=== PATIENT | female | born 1980 | race Caucasian/White ===

== ENCOUNTER 2016-07-26 05:34 | Day surgery (SDC) | payer OTHER ==
[2016-07-23 14:05] VITALS: BMI 31.8
[2016-07-26] MEDS ORDERED: BUPIVACAINE HCL/PF 0.5% (5MG/ML) 10 ML VIAL ONE (07:45)
[2016-07-26] MEDS ORDERED: LIDOCAINE HCL/PF 2% SDV 5ML VIAL ONE (07:45)
[2016-07-26] MEDS ORDERED: ROCURONIUM BROMIDE 50 MG/5 ML VIAL ONE (07:46)
[2016-07-26] MEDS ORDERED: MIDAZOLAM HCL 2 MG/2 ML SINGLE DOSE VIAL ONE (07:46)
[2016-07-26] MEDS ORDERED: PROPOFOL 20 ML ONE (07:46)
[2016-07-26] MEDS ORDERED: DESFLURANE GAS 240 ML BOTTLE IH ONE (07:49)
[2016-07-26] MEDS ORDERED: IBUPROFEN 800 MG/8 ML IJ IVPB ONE (07:51)
[2016-07-26] MEDS ORDERED: IBUPROFEN 800 MG/8 ML IJ IVPB PRN (08:14)
[2016-07-26] MEDS ORDERED: ACETAMINOPHEN 325 MG TABLET (FP) PO PRN (08:14)
--- NOTE | 2016-07-26 08:14 | HP ---
History & Physical Update - History History: No Change - Physical Physical: No Change - Assessment Assessment: No Change - Plan Plan: No Change (dermoid cyst - for robotic assisted laparscopic removal)
[2016-07-26] MEDS ORDERED: LACTATED RINGERS SOLUTION 1,000 ML IV SCH (08:15)
[2016-07-26] MEDS ORDERED: ONDANSETRON 4 MG/2 ML VIAL IVPUSH PRN (09:02)
[2016-07-26] MEDS ORDERED: oxyCODONE HCL 5 MG TABLET PO PRN (09:02)
[2016-07-26] MEDS ORDERED: NEOSTIGMINE METHYLSULFATE 0.5 MG/ML - 10 ML MDV ONE (09:22)
[2016-07-26] MEDS ORDERED: GLYCOPYRROLATE 0.2 MG/1 ML VIAL ONE (09:22)
[2016-07-26] MEDS ORDERED: BUPIVACAINE HCL/PF 0.5% (5MG/ML) 10 ML VIAL IJ ONE (09:40)
--- NOTE | 2016-07-26 09:55 | OP ---
Operative Note - Note: Operative Date: 07/26/16 Pre-Operative Diagnosis: right ovarian dermoid cyst Operation: robotic laparoscopic right ovarian cystectomy Findings: large 4-5cm right dermoid cyst Post-Operative Diagnosis: Same as Pre-op Surgeon: Janna Diaz Animal Ecologist: Augustina Resendiz Anesthesiologist/QA ENGINEER: Mariana Sim Anesthesia: General Specimens Removed: right ovarian dermoid cyst Estimated Blood Loss (mls): 25 Fluid Volume Replaced (mls): 700 Operative Report Dictated: Yes
[2016-07-26 11:21] VITALS: TEMP 97.7
[2016-07-26 13:30] VITALS: BP 100/56; PULSE 80
--- NOTE | 2016-07-26 21:20 | OP ---
DATE OF OPERATION: 07/26/2016 PREOPERATIVE DIAGNOSIS: Right ovarian dermoid cyst. POSTOPERATIVE DIAGNOSIS: Right ovarian dermoid cyst. PROCEDURE: Laparoscopic robotic-assisted right ovarian cystectomy. SURGEON: Janna Diaz MD ELECTRIC MOTOR ASSEMBLER AND TESTER: Augustina Resendiz MD ANESTHESIA: General, by Dr. Mariana Sim. ESTIMATED BLOOD LOSS: 25 mL. COMPLICATIONS: None. FINDINGS: Large, 4 to 5 cm, right ovarian dermoid cyst. Otherwise normal intrapelvic and intraabdominal anatomy. COUNTS: Sponge, needle, and instrument counts were reported to be correct at the end of the case. DISPOSITION: Stable to PACU. BRIEF HISTORY AND PROCEDURE: Patient is a 36-year-old female who had been seen in the office and upon ultrasound examination was found to have a right ovarian dermoid cyst. The patient was counseled on her options and elected to undergo a robotic-assisted laparoscopic removal of the cyst. Consents were signed in the office. The patient was then admitted to [facility] outpatient surgery on July 26, 2016. Consents were re-confirmed upon admission. The patient was then taken back to the operating room. She was given general anesthesia by Dr. Mariana Sim and placed in the dorsal lithotomy position. A Bone catheter was placed under sterile conditions. The patient was prepped and draped in the usual sterile fashion and a hard time -out was performed. An 8-mm skin incision was created in the inferior umbilicus and a Veress needle was placed intraabdominally. The abdomen was inflated with CO2 gas. A trocar was placed intraabdominally and the camera was inserted. The remaining robot ports were inserted under direct visualization at this time, 2 right-sided trocars and 2 left-sided trocars. Next, the robot was docked and attention was then turned to the right ovary, where a large dermoid cyst was appreciated. An incision was made on the ovarian tissue and the cyst was dissected away from the ovary in its entirety using blunt and sharp dissection. The ovarian tissue that remained was cauterized until hemostasis was achieved at the surgical bed. Next, an EndoCatch bag was placed inside the abdomen and the dermoid cyst was placed inside the bag and removed from the abdomen. Thorough inspection of the abdomen and pelvis was completed, and copious irrigation and suction was completed to remove all portions of the dermoid cyst including any fluid or pieces of hair. The abdomen and pelvis was noted to be clean at the end of the procedure, and again inspection of the right ovary revealed hemostasis at the surgical site. All instruments were removed from the abdomen under direct visualization. The abdomen was desufflated. The trocars were removed. The skin was reapproximated using Biosyn suture and skin glue. The Bone catheter was removed. The patient was awoken from anesthesia in stable condition and recovering in PACU at the time of this dictation. Sponge needle and instrument count was reported as correct at the end of the case. JANNA DIAZ DO /[id number] MTDD
--- NOTE | 2016-07-28 11:20 | PATH ---
Surgical Pathology Report Patient Name: [facility]MON[facility]. Rec. #: [id number] /Age/Gender: 1980 (Age: 36) / F Account: [id number] Location: [facility] SURGICAL Taken: 07/26/2016 Received: 07/26/2016 Reported: 07/27/2016 Physicians: Janna Diaz M.D. Specimen(s) Received RIGHT OVARIAN DERMOID CYST Clinical History Right ovarian cyst Final Diagnosis OVARY, RIGHT, DERMOID CYST, CYSTECTOMY: MATURE CYSTIC TERATOMA. Electronically Signed Jelani Devlin M.D. Gross Description Received in formalin labeled "right ovarian dermoid cyst" is a 4.3 x 2.8 x 1.3 cm pink-corrales, irregular portion of soft tissue, consistent with a disrupted dermoid cyst. Also received within the same container is abundant corrales sebaceous material and hair. The cyst displays a focal calcified area, consistent with a tooth. Corn Crop Supervisor sections are submitted in 5 cassettes with cassette 1 following decalcification. /07/26/2016 [facility]/07/26/2016
== END 2016-07-26 13:15 | disposition home or self-care (01) ==
LOC: JASU-SURG 05:34
PROVIDERS: ATTEND Obstetrics & Gynecology
PROC: 0UB04ZZ Excision of Right Ovary, Percutaneous Endoscopic Approach (ICD-10-PCS; principal; 2016-07-26 08:00)
DX: D27.0 Benign neoplasm of right ovary (principal)
CPT/HCPCS: 84703; 88307-TC; 88311-TC; 94760